=== PATIENT | male | born 1995 | race Caucasian/White ===

== ENCOUNTER 2019-05-29 15:22 | Emergency (ER) | payer BC ==
[~2019-05-29] VITALS: Ht 180.3 cm; Wt 95.7 kg
[2019-05-29 15:25] VITALS: BP 115/78; Ht 180.3 cm; Wt 95.7 kg
== END 2019-05-29 18:22 | disposition home or self-care (01) ==
LOC: ED 15:22
DX: S61.411A Laceration without foreign body of right hand, initial encounter (principal); W25.XXXA Contact with sharp glass, initial encounter; Y93.89 Activity, other specified; Y92.89 Other specified places as the place of occurrence of the external cause; Y99.8 Other external cause status
CPT/HCPCS: 90715; J2001; Q0092

== ENCOUNTER 2019-05-31 11:06 | Emergency (ER) | payer BC ==
[~2019-05-31] VITALS: Ht 180.3 cm; Wt 97.5 kg
[2019-05-31 11:28] VITALS: Ht 180.3 cm; Wt 97.5 kg
[2019-05-31 12:41] VITALS: BP 112/67
== END 2019-05-31 12:41 | disposition home or self-care (01) ==
LOC: ED 11:06
DX: S61.411D Laceration without foreign body of right hand, subsequent encounter (principal); X58.XXXD Exposure to other specified factors, subsequent encounter